=== PATIENT | male | born 1965 | race Caucasian/White ===

== ENCOUNTER 2016-10-31 10:31 | Emergency (ER) | payer OTHER ==
[~2016-10-31] VITALS: Ht 177.8 cm; Wt 111.0 kg
[2016-10-31 10:34] VITALS: BP 184/103; PULSE 106; RESP 20; TEMP 98.6; O2SAT 96
[2016-10-31 10:47] VITALS: BP 186/106; PULSE 96; RESP 16; O2SAT 100
--- NOTE | 2016-10-31 10:57 | PD ---
HPI Chief Complaint: Dizziness Time Seen by Provider: 10:45 Travel History International Travel<30 days: No Contact w/Intl Traveler<30days: No Traveled to known affect area: No History of Present Illness HPI 50yo M with PMH of HTN and HLD presents to the ED with c/o lightheadedness that started about an hour ago. States he is on vacation and has been drinking more alcohol than usual. Had moderate amount of alcohol last night. States he was driving today when he felt lightheaded. States it is worst with head movement. Pt always has tinnitus in right ear. Denies any fever, cough, chest pain, sob , nausea, vomiting, abdominal pain, focal weakness or numbness. Pt did not eat this morning except for coffee so went to eat and didnt feel totally better. Pt is feeling a little better now. Had similar dizziness when he drank alcohol before. [facility] Social History Alcohol Use: Yes Tobacco Use: Yes Substance Use: No Allergies-Medications (Allergen,Severity, Reaction): Coded Allergies: No Known Allergies (Unverified , 10/31/16) Review of Systems Except as stated in HPI: all other systems reviewed are Neg Physical Exam Narrative GENERAL: 50yo M not in idstress. SKIN: Focused skin assessment warm/dry. HEAD: Atraumatic. Normocephalic. EYES: Pupils equal and round at 4mm bilaterally. EOMI. No nystagmus. No scleral icterus. No injection or drainage. ENT: No nasal bleeding or discharge. Mucous membranes pink and moist. NECK: Trachea midline. No JVD. CARDIOVASCULAR: Regular rate and rhythm. No murmur appreciated. RESPIRATORY: No accessory muscle use. Clear to auscultation. Breath sounds equal bilaterally. GASTROINTESTINAL: Abdomen soft, non-tender, nondistended. MUSCULOSKELETAL: No obvious deformities. No clubbing. No cyanosis. No edema. NEUROLOGICAL: Awake and alert. No obvious cranial nerve deficits. Motor grossly within normal limits. Normal speech. PSYCHIATRIC: Appropriate mood and affect; insight and judgment normal. Data Data Last Documented VS Vital Signs Date Time Temp Pulse Resp B/P (MAP) Pulse Ox O2 Delivery O2 Flow Rate FiO2 10/31/16 11:54 76 16 150/88 (108) 97 Room Air 10/31/16 10:34 98.6 Orders Orders Electrocardiogram (10/31/16 10:53) Basic Metabolic Panel (Bmp) (10/31/16 10:53) Complete Blood Count With Diff (10/31/16 10:53) Magnesium (Mg) (10/31/16 10:53) Troponin I (10/31/16 10:53) Ecg Monitoring (10/31/16 10:53) Iv Access Insert/Monitor (10/31/16 10:53) Oximetry (10/31/16 10:53) Sodium Chloride 0.9% Flush (Ns Flush) (10/31/16 11:00) Orthostatic Vital Signs (10/31/16 10:53) Blood Glucose (10/31/16 10:53) Labs Laboratory Tests Test 10/31/16 11:05 White Blood Count 4.7 TH/MM3 Red Blood Count 5.20 MIL/MM3 Hemoglobin 15.9 GM/DL Hematocrit 46.3 % Mean Corpuscular Volume 89.1 FL Mean Corpuscular Hemoglobin 30.6 PG Mean Corpuscular Hemoglobin Concent 34.3 % Red Cell Distribution Width 12.8 % Platelet Count 186 TH/MM3 Mean Platelet Volume 8.9 FL Neutrophils (%) (Auto) 68.8 % Lymphocytes (%) (Auto) 21.7 % Monocytes (%) (Auto) 6.7 % Eosinophils (%) (Auto) 2.4 % Basophils (%) (Auto) 0.4 % Neutrophils # (Auto) 3.3 TH/MM3 Lymphocytes # (Auto) 1.0 TH/MM3 Monocytes # (Auto) 0.3 TH/MM3 Eosinophils # (Auto) 0.1 TH/MM3 Basophils # (Auto) 0.0 TH/MM3 CBC Comment DIFF FINAL Differential Comment Blood Urea Nitrogen 18 MG/DL Creatinine 1.05 MG/DL Random Glucose 116 MG/DL Calcium Level 8.6 MG/DL Magnesium Level 2.0 MG/DL Sodium Level 139 MEQ/L Potassium Level 3.9 MEQ/L Chloride Level 105 MEQ/L Carbon Dioxide Level 26.7 MEQ/L Anion Gap 7 MEQ/L Estimat Glomerular Filtration Rate 74 ML/MIN Troponin I LESS THAN 0.02 NG/ML MDM Medical Decision Making Medical Screen Exam Complete: Yes Emergency Medical Condition: Yes Interpretation(s) EKG: NSR 90bpm. LAD. No ST segment elevation or depression. QTc 391ms. QRS narrow. Laboratory Tests Test 10/31/16 11:05 White Blood Count 4.7 TH/MM3 (4.0-11.0) Red Blood Count 5.20 MIL/MM3 (4.50-5.90) Hemoglobin 15.9 GM/DL (13.0-17.0) Hematocrit 46.3 % (39.0-51.0) Mean Corpuscular Volume 89.1 FL (80.0-100.0) Mean Corpuscular Hemoglobin 30.6 PG (27.0-34.0) Mean Corpuscular Hemoglobin Concent 34.3 % (32.0-36.0) Red Cell Distribution Width 12.8 % (11.6-17.2) Platelet Count 186 TH/MM3 (150-450) Mean Platelet Volume 8.9 FL (7.0-11.0) Neutrophils (%) (Auto) 68.8 % (16.0-70.0) Lymphocytes (%) (Auto) 21.7 % (9.0-44.0) Monocytes (%) (Auto) 6.7 % (0.0-8.0) Eosinophils (%) (Auto) 2.4 % (0.0-4.0) Basophils (%) (Auto) 0.4 % (0.0-2.0) Neutrophils # (Auto) 3.3 TH/MM3 (1.8-7.7) Lymphocytes # (Auto) 1.0 TH/MM3 (1.0-4.8) Monocytes # (Auto) 0.3 TH/MM3 (0-0.9) Eosinophils # (Auto) 0.1 TH/MM3 (0-0.4) Basophils # (Auto) 0.0 TH/MM3 (0-0.2) CBC Comment DIFF FINAL Differential Comment Blood Urea Nitrogen 18 MG/DL (7-18) Creatinine 1.05 MG/DL (0.60-1.30) Random Glucose 116 MG/DL (74-106) Calcium Level 8.6 MG/DL (8.5-10.1) Magnesium Level 2.0 MG/DL (1.5-2.5) Sodium Level 139 MEQ/L (136-145) Potassium Level 3.9 MEQ/L (3.5-5.1) Chloride Level 105 MEQ/L (98-107) Carbon Dioxide Level 26.7 MEQ/L (21.0-32.0) Anion Gap 7 MEQ/L (5-15) Estimat Glomerular Filtration Rate 74 ML/MIN (>89) Troponin I LESS THAN 0.02 NG/ML Differential Diagnosis Hypoglycemia vs. dehydration vs. arrhythmia vs. vertigo Narrative Course 50yo M with c/o lightheadedness today. Pt did admit to drinking more alcohol than usual last night and did not eat this morning. Pt has been observed in the ED and has been feeling much better. Denies any more dizziness. Pt had no chest pain or sob. Orthostatic negative. BP improved, pt took his morning medication today. Labs reviewed, no leukocytosis. BMP unremarkable. Troponin negative. Glucose 116. EKG unremarkable. Pt feels better and wants to go home. Return precautions given. Diagnosis Primary Impression: Dizziness Patient Instructions: General Instructions Departure Forms: Tests/Procedures Additional Instructions: Please follow up with your primary care physician in 1-2 days. Return to the ED if symptoms worsen. Med/Other Pt SpecificInfo: No Change to Meds Disposition: 01 DISCHARGE HOME Condition: Stable Janine Valdez DO Oct 31, 2016 10:57
[2016-10-31] MEDS ORDERED: SODIUM CHLORIDE 0.9% FLUSH 10 ML FLUSH IVF PRN (11:00)
[2016-10-31 11:14] VITALS: BP_SYST 169; BP_SYST 175; BP_SYST 179; BP_DIAS 91; BP_DIAS 93; O2SAT 97
[2016-10-31 11:22] LABS: AUTOMATED NEUTROPHIL # 3.3 TH/MM3 (1.8-7.7); BASOPHIL % 0.4 % (0.0-2.0); EOSINOPHIL # 0.1 TH/MM3 (0-0.4); EOSINOPHIL % 2.4 % (0.0-4.0); HEMATOCRIT 46.3 % (39.0-51.0); HEMO FLAGS DIFF FINAL; LYMPH % 21.7 % (9.0-44.0); MEAN CELL VOLUME 89.1 FL (80.0-100.0); MEAN CORPUSCULAR HEMOGLOBIN 30.6 PG (27.0-34.0); MEAN CORPUSCULAR HGB CONC 34.3 % (32.0-36.0); MONO % 6.7 % (0.0-8.0); NEUT % 68.8 % (16.0-70.0); PLATELET COUNT 186 TH/MM3 (150-450); RED CELL DISTRIBUTION WIDTH 12.8 % (11.6-17.2); WHITE BLOOD COUNT 4.7 TH/MM3 (4.0-11.0)
[2016-10-31 11:47] LABS: ANION GAP 7 MEQ/L (5-15); BICARBONATE 26.7 MEQ/L (21.0-32.0); BLOOD UREA NITROGEN 18 MG/DL (7-18); CHLORIDE 105 MEQ/L (98-107); GLOMERULAR FILTRATION RATE 74 ML/MIN (>89); POTASSIUM 3.9 MEQ/L (3.5-5.1); SODIUM (NA) 139 MEQ/L (136-145)
[2016-10-31 11:54] VITALS: BP 150/88; PULSE 76; RESP 16; O2SAT 97
--- NOTE | 2016-11-01 14:01 | EKG ---
Date Performed: 10/31/2016 Time Performed: 11:04:25 PTAGE: 50 years EKG: Sinus rhythm BORDERLINE LEFT AXIS DEVIATION VOLTAGE CRITERIA FOR LVH ABNORMAL ECG NO PREVIOUS TRACING DOCTOR: Klever Woods Interpretating Date/Time 11/01/2016 14:01:20
== END 2016-10-31 12:39 | disposition home or self-care (01) ==
LOC: NEPC 10:31
DX: R42 Dizziness and giddiness (principal); R94.31 Abnormal electrocardiogram [ECG] [EKG]; E78.5 Hyperlipidemia, unspecified; I10 Essential (primary) hypertension; Z72.0 Tobacco use
CPT/HCPCS: 80048; 83735; 84484; 85025; 93005; 99284